=== PATIENT | male | born 1975 | race Caucasian/White ===

== ENCOUNTER 2019-02-16 20:29 | Inpatient (IN) ==
[2019-02-16] MEDS ORDERED: ONDANSETRON INJ 2 MG/ML 2 ML VIAL IV STA (20:45)
[2019-02-16] MEDS ORDERED: KETOROLAC TROMETHAMINE 15 MG/ML VIAL IV STA (20:45)
[2019-02-16] MEDS ORDERED: SODIUM CHLORIDE 0.9% 1000ML 1,000 ML IV ONE (20:45)
[2019-02-16] MEDS ORDERED: MoRPHine SULFATE 4 MG/ML 1 ML CARP\\VIAL IV STA (20:45)
[2019-02-16 21:13] LABS: Hematocrit (blood only) 40.3 % (42-52); Hemoglobin 14.2 g/dL (14.0-18.0); Mean Corpuscular Hemoglobin 31.2 pg (25-34); Mean Corpuscular Hgb Conc 35.2 g/dL (32-36); Mean Corpuscular Volume 88.6 fL (80-100); Mean Platelet Volume 9.7 fL (7.4-10.4); Platelet Count 197 K/uL (130-400); RDW Coefficient of Variation 12.9 % (11.5-14.5); RDW Standard Deviation 41.1 fL (36.4-46.3); Red Blood Count 4.55 M/uL (4.7-6.1); White Blood Count 12.16 K/uL (4.8-10.8)
[2019-02-16 21:18] LABS: Appearance Urine Cloudy (Clear); Bacteria Urine Automated Negative (Negative); Bilirubin Urine Negative (Negative); Blood Urine 2+ (Negative); Color Urine Dark Yellow; Epithelial Cell Urine Auto >30 /lpf (0-5); Glucose Urine UA Negative (Negative); Ketones Urine Trace (Negative); Leukocyte Esterase Urine Negative (Negative); Nitrite Urine Negative (Negative); Protein Urine 2+ (Negative); Specific Gravity Urine 1.031 (1.000-1.030); Urobilinogen Urine Negative (Negative); pH Urine 5.5 (4.5-7.5)
--- NOTE | 2019-02-16 21:22 | XRay Report ---
KUB HISTORY: Follow up study in a patient with left ureteral calculus stone passage left COMPARISON: KUB 02/13/2019 FINDINGS: The bowel gas pattern is non-obstructive. There is no organomegaly. The renal shadows are partially obscured by bowel gas. No definite renal or ureteral calculi identified. There are 2 subadj acent pelvic basin calcifications on the left, one of which may reflect the previously noted left ure teral calculus with distal migration. Pelvic phleboliths redemonstrated. No pneumoperitoneum or pneum atosis. No fracture. IMPRESSION: 3 mm left pelvic basin calcification possibly reflects migrated ureteral calculus. Correlate with uri nalysis. Electronically signed by: Neal Mahan M.D. 02/16/2019 9:19 PM
[2019-02-16] MEDS ORDERED: TAMSULOSIN HCL 0.4 MG CAP PO ONE (21:23)
[2019-02-16 21:28] LABS: BUN Creatinine Ratio 12.8 (10-20); Calcium 9.3 mg/dl (8.5-10.1); Creatinine Clr Calc Pharmacy 109.2 ml/min; Est GFR (African American) 91.4; Est GFR (Non-African American) 78.9; Potassium 3.4 mmol/L (3.5-5.1)
[2019-02-16 21:29] LABS: Calcium Oxalate Crystals Urine Present (None Prsent); RBC Urine Automated 0-4 /hpf (0-4); Renal Epithelial Cells Urine 0-5 /lpf (0-5)
--- NOTE | 2019-02-16 21:46 | Emergency Department Note ---
Entered by Leona Gruber acting as a scribe for History of Present Illness General Chief complaint: Kidney Stone Stated complaint: KIDNEY STONES, SEVERE PAIN Time Seen by Provider: 02/16/19 20:38 History of Present Illness Provider complaint: flank pain Onset (ago): hour(s) 3 Location: abdomen (flank) Pain Consistency: + other (worsening) Maximum Pain Intensity: 8 Relieved By: not by medication Associated symptoms: + denies other symptoms (hematuria) and + other (diagnosed with kidney stones 3 days ago, having flare ups on pain ever since, pain worse on left side, spells of dry heaving, decreased appetite, has not followed up with urology); no fever/chills Treatments prior to arrival: other (3 Tylenol and 1 Oxycodone at 1800 which did not help) The patient is a 44 year old male who presents to the ED with complaints of worsening flank pain that started 3 hours ago. The patient states that was seen in the ED 3 days ago and was diagnosed with kidney stones. The patient states that he has been having flare ups of flank pain ever since he was discharged. The patient states that his pain is worse on the left side. The patient notes that he took 3 Tylenol and 1 Oxycodone at 1800, but neither helped his pain. The patient notes that he has had spells of dry heaving and he has had a decreased appetite. The patient denies hematuria and fever. The patient notes that he has not followed up with urology yet. Home Medications Home Medications Medication Instructions Recorded Confirmed Type oxycodone 5 mg PO Q4H PRN #15 tab 02/13/19 Rx Allergies Allergy/AdvReac Type Severity Reaction Status Date / Time cashew nut Allergy Intermediate GI symptoms Verified 02/13/19 07:22 Past Med/Surg History Medical History Obstruction of left ureteropelvic junction (UPJ) due to stone (Acute) Right distal ureteral calculus (Acute) Dizziness (Acute) High blood pressure (Acute) Kidney stone Hypertension Surgical History No significant past surgical history Social History Preferred Language: Kenyan marital status: current occupational status: employed Feels Safe at Home: Yes Smoking Status: Never smoker Review of Systems See HPI for pertinent positives & negatives. and A total of 10 systems reviewed and were otherwise negative Physical Exam Vital Signs Vital Signs - 24 hr 02/16/19 20:32 02/16/19 21:15 Temperature 37.0 C Temperature Source Oral Sepsis Recent Fever Within 48 Hours No Sepsis New/Unexplained Change in Mental Status No Sepsis Action Taken by Nursing No Action Required Pulse Rate 100 H Respiratory Rate 16 99 H Blood Pressure 158/87 H Blood Pressure [Left Arm] 156/108 H Blood Pressure Mean 110 Blood Pressure Mean [Left Arm] 124 Pulse Oximetry 97 Oxygen Delivery Method Room Air GENERAL: Patient is in no acute distress. HEENT: No acute trauma, normocephalic atraumatic, mucous membranes moist, no nasal congestion, no scleral icterus. NECK: No stridor, no adenopathy, no meningismus, trachea is midline. LUNGS: Clear to auscultation bilaterally, no wheeze, no rhonchi, breath sounds equal. HEART: 2/6 systolic murmur, mildly tachycardic, regular rhythm. ABDOMEN: Soft, nontender, bowel sounds positive, no hernias, no peritonitis. BACK: No flank discomfort with percussion. EXTREMITIES: No cyanosis or edema, full range of motion of all the joints without pain or difficulty, no signs for acute trauma. NEUROLOGIC: Oriented x 3, no acute motor or sensory deficits, no focal weakness. SKIN: No rash, no jaundice, no diaphoresis. Course 2040: Past medical records reviewed. The patient was evaluated in room C7. A complete history and physical exam was performed. 2137: I updated the patient on the test results. He is still having some pain but he states that he is feeling better. 2144: I discussed the patient's case with Dr. Naz Parikh. He will evaluate the patient for further management. Consultations Consultation #1: I discussed the patient's case with Dr. Naz Parikh. He will evaluate the patient for further management. Time: 21:45 Administered Medications Discontinued Medications Sodium Chloride (Nss 1000ml) 1,000 mls @ 999 mls/hr IV .Q1H1M ONE Stop: 02/16/19 21:45 Last Infusion: 02/16/19 21:48 Dose: 0 mls/hr Documented by: [id number] Admin: 02/16/19 21:02 Dose: 999 mls/hr Documented by: [id number] Ketorolac Tromethamine (Toradol) 15 mg IV ONE STA Stop: 02/16/19 20:46 Last Admin: 02/16/19 21:01 Dose: 15 mg Documented by: [id number] Morphine Sulfate (Morphine Sulfate) 4 mg IV NOW STA Stop: 02/16/19 20:46 Last Admin: 02/16/19 21:02 Dose: 4 mg Documented by: [id number] Ondansetron HCl (Zofran) 4 mg IV NOW STA Stop: 02/16/19 20:46 Last Admin: 02/16/19 21:02 Dose: 4 mg Documented by: [id number] Tamsulosin HCl (Flomax) 0.4 mg PO NOW ONE Stop: 02/16/19 21:24 Last Admin: 02/16/19 21:33 Dose: 0.4 mg Documented by: [id number] Medical Decision Making Differential Diagnosis Differentials include failed outpatient treatment, hydronephrosis, pyelonephritis, UTI, renal colic, renal failure, hematuria, dehydration. Medical Records Attestation: I reviewed the patient's medical records. Patient was seen here on 02/13/2019 and diagnosed with kidney stones. The patient had a 3 mm left UPJ obstructing stone and non-obstructing 2.5 mm distal right calculus. Patient had WBC of 11 and normal creatinine. Patient was discharged on Oxycodone. Home Medications Current Medication List: was personally reviewed by me Laboratory Data Attestation: I reviewed the patient's lab results. Result diagrams: 02/16/19 21:03 02/16/19 21:03 Lab Results 02/16/19 02/16/19 02/16/19 Range/Units 20:56 21:03 21:03 WBC 12.16 H (4.8-10.8) K/uL RBC 4.55 L (4.7-6.1) M/uL Hgb 14.2 (14.0-18.0) g/dL Hct 40.3 L (42-52) % MCV 88.6 (80-100) fL MCH 31.2 (25-34) pg MCHC 35.2 (32-36) g/dL RDW Std Deviation 41.1 (36.4-46.3) fL RDW Coeff of Katerina 12.9 (11.5-14.5) % Plt Count 197 (130-400) K/uL MPV 9.7 (7.4-10.4) fL Sodium 138 (136-145) mmol/L Potassium 3.4 L (3.5-5.1) mmol/L Chloride 107 (98-107) mmol/L Carbon Dioxide 24 (21-32) mmol/L Anion Gap 7.0 (3-11) BUN 15 (7-18) mg/dl Creatinine 1.14 (0.6-1.4) mg/dl Est Cr Clr Drug Dosing 109.2 ml/min Est GFR ( Amer) 91.4 Est GFR (Non-Af Amer) 78.9 BUN/Creatinine Ratio 12.8 (10-20) Glucose 124 H (70-99) mg/dl Calcium 9.3 (8.5-10.1) mg/dl Urine Color Dark Yellow Urine Appearance Cloudy A (Clear) Urine pH 5.5 (4.5-7.5) Ur Specific [place] 1.031 H (1.000-1.030) Urine Protein 2+ H (Negative) Urine Glucose (UA) Negative (Negative) Urine Ketones Trace H (Negative) Urine Blood 2+ H (Negative) Urine Nitrite Negative (Negative) Urine Bilirubin Negative (Negative) Urine Urobilinogen Negative (Negative) Ur Leukocyte Esterase Negative (Negative) Urine WBC (Auto) 1-5 (0-5) /hpf Urine RBC (Auto) 0-4 (0-4) /hpf U Hyaline Cast (Auto) 10-30 H (0-5) /lpf U Epithel Cells (Auto) >30 H (0-5) /lpf Urine Bacteria (Auto) Negative (Negative) Ur Renal Epithelial Cell 0-5 (0-5) /lpf Urine Crystals Calcium Oxalate A (None Prsent) Calcium Oxalate Crystal Present A (None Prsent) Urine Yeast Not Reportable Imaging Data Radiologist's Impression: Radiology results as stated below per my review and the radiologist's interpretation: KUB HISTORY: Follow up study in a patient with left ureteral calculus stone passage left COMPARISON: KUB 02/13/2019 FINDINGS: The bowel gas pattern is non-obstructive. There is no organomegaly. The renal shadows are partially obscured by bowel gas. No definite renal or ureteral calculi identified. There are 2 subadjacent pelvic basin calcifications on the left, one of which may reflect the previously noted left ureteral calculus with distal migration. Pelvic phleboliths redemonstrated. No pneumoperitoneum or pneumatosis. No fracture. IMPRESSION: 3 mm left pelvic basin calcification possibly reflects migrated ureteral calculus. Correlate with urinalysis. Electronically signed by: Neal Mahan M.D. 02/16/2019 9:19 PM Blood Pressure Blood Pressure Findings: Elevated blood pressure Blood Pressure Disposition: further management by hospitalist MDM Narrative There is a mild leukocytosis at 12,000, this is consistent with his pain, possibly consistent with infection. There was no worrisome anemia. No significant electrolyte abnormality or kidney failure. Urinalysis does so calci um oxalate crystals as well as some hematuria. There was no evidence of for UTI. KUB demonstrates a potential left ureteral stone which has migrated towards the bladder when compared to previous films. On exam, the patient was not febrile or toxic. The patient has bilateral ureteral stones, the one on the left is giving him pain and causing obstruction. He presents today with increased pain despite oxycodone and Tylenol taken at home. He has been dry heaving. The patient has failed outpatient treatment and requires a hospital stay for fluids and pain control. He may require urologic intervention if not passing the stone naturally. Patient was given IV saline, IV Zofran, IV morphine and IV Toradol. He was given a dose of oral Flomax. I did speak to the patient about his findings, I spoke with case management. The on-call hospitalist was consulted. Impression & Plan Renal colic, Hydronephrosis, Failure of outpatient treatment, Left flank pain Discharge Plan Visit Data Chief Complaint: Kidney Stone Stated Complaint: KIDNEY STONES, SEVERE PAIN ED Provider: Shadi Marcos Discharge Problem: Renal colic, Hydronephrosis, Failure of outpatient treatment, Left flank pain Patient Disposition: Being Evaluated by Hospitalist Forms Stand Alone Forms: My [employer] Prescriptions Prescriptions: No Action oxycodone 5 mg tablet 5 mg PO Q4H PRN (Reason: pain) Qty: 15 RF: 0 Referrals Referrals: Raul Perez MD [Primary Care Provider] - Discharge Problem: Hydronephrosis Qualifiers: Hydronephrosis type: unspecified Qualified Code(s): N13.30 - Unspecified hydronephrosis The scribe's documentation has been prepared under my direction and personally reviewed by me in its entirety. I confirm that the note above accurately reflects all work, treatment, procedures, and medical decision making performed by me.
[2019-02-17] MEDS ORDERED: ONDANSETRON INJ 2 MG/ML 2 ML VIAL IV PRN (00:04)
[2019-02-17] MEDS ORDERED: ACETAMINOPHEN 325 MG TAB PO PRN (00:04)
[2019-02-17] MEDS: SODIUM CHLORIDE 0.9% 1000ML 1,000 ML IV SCH ×4 (00:22→21:17)
--- NOTE | 2019-02-17 01:21 | History and Physical Report ---
DATE OF ADMISSION: 02/16/2019 CHIEF COMPLAINT: Kidney stone. HISTORY OF PRESENT ILLNESS: A 44-year-old male with past medical history of hypertension, currently not taking any medication because he could not tolerate them, intially he was place on lisinopril and later on Norvasc but he says he is not taking them currently, came to the ER on February 13 with severe pain in the left side and at that time a CAT scan was done which showed bilateral kidney stones, 3 mm left UPJ calculus with secondary obstructive changes and nonobstructing 2.5 mm distal right UVJ calculus. The patient was sent home and was advised to increase the fluid intake and take Tylenol, ibuprofen and strain the urine and follow up with family doctor and urologist.But the patient says the pain seemed to get better, but again it came back.Today afternoon had severe pain in the left flank, rated 8/10 in severity, which brought him to the ER. Currently, with the pain medication, pain is improved to 3/10 in severity. Denies any hematuria or burning micturition. No fever, chills. No nausea, no vomiting. No chest pain or shortness of breath. No cough, no headache, no dizziness, no blurred vision, no earache, no runny nose, no sore throat, no difficulty swallowing. No rash, no swelling in the legs. Resting comfortably and hemodynamically stable. ALLERGIES: CASHEW NUT. PAST MEDICAL HISTORY: As mentioned above. PAST SURGICAL HISTORY: No surgical history on file. MEDICATIONS: None currently. FAMILY HISTORY: Significant for father who has hypertension. SOCIAL HISTORY: . No smoking, no alcohol, no drug use. REVIEW OF SYMPTOMS: As per HPI. Rest of review of systems is negative. PHYSICAL EXAMINATION: GENERAL: The patient is obese, not in acute distress. VITAL SIGNS: Temperature 37, pulse 94, respiratory rate 16, blood pressure 166/101, oxygen 95% room air. HEENT: No pallor, no icterus. Pupils equal, round, and reactive to light. NECK: No JVD, no neck masses, no carotid bruits. CARDIOVASCULAR: S1, S2 heard, regular rate and rhythm, no murmur, no gallop. RESPIRATORY SYSTEM: Normal AP diameter. No accessory muscle use. No wheezing, no crackles. ABDOMEN: Soft, bowel sounds present, nontender.NO CVA tenderness, No distention. CENTRAL NERVOUS SYSTEM: Cranial nerves II-XII grossly intact. Nonfocal. EXTREMITIES: No edema, no erythema. LABORATORY DATA: WBC 12.1, hemoglobin 14.2, hematocrit 40.3, platelets 197. Sodium 138, potassium 3.4, chloride 107, bicarbonate 24, BUN 15, creatinine 1.14, serum glucose 124, calcium 9.3. Urinalysis positive for blood, urine crystals, calcium oxalate crystals present. KUB x-ray shows 3 mm left pelvic basin calcification, possibly reflects migrated ureteral calculus. ASSESSMENT AND PLAN: This is a 44-year-old male who presents with renal colic. 1. Renal colic. The patient was in the ER on February 13 with left flank pain. CAT scan showed left 3 mm UPJ junction obstructing stone and 2.5 mm right UPJ nonobstructing stone. He was discharged home with conservative management, advised to follow with urology. The pain came back again today. KUB shows possibly left upj stone migrated to left pelvic basin, so we will keep him in the hospital, give him IV fluids, pain control, n.p.o. after midnight and consult urology in a.m. for further recommendation. Follow repeat KUB in the a.m. 2. History of hypertension, currently not taking any medication. Blood pressure is somewhat elevated . Will monitor. We will discuss with the patient about starting on antihypertensives if blood pressure continues to be l elevated. Needs close followup with PCP. 3. Deep venous thrombosis prophylaxis, sequential compression devices for now. 4. Disposition: Monitor in the medical floor. Level 1 full code. MTDD
[2019-02-17] MEDS: MoRPHine SULFATE 4 MG/ML 1 ML CARP\\VIAL IV PRN ×4 (02:30→20:27)
[2019-02-17 06:16] LABS: Basophils # (auto) 0.02 K/uL (0-0.2); Basophils % (auto) 0.2 %; Eosinophils # (auto) 0.24 K/uL (0-0.5); Hematocrit (blood only) 39.7 % (42-52); Hemoglobin 13.4 g/dL (14.0-18.0); Immature Granulocytes # (auto) 0.02 K/uL (0.00-0.02); Immature Granulocytes % (auto) 0.2 %; Lymphocytes # (auto) 1.51 K/uL (1.2-3.4); Lymphocytes % (auto) 12.7 %; Mean Corpuscular Hemoglobin 30.7 pg (25-34); Mean Corpuscular Hgb Conc 33.8 g/dL (32-36); Mean Corpuscular Volume 91.1 fL (80-100); Mean Platelet Volume 10.1 fL (7.4-10.4); Monocytes # (auto) 1.39 K/uL (0.11-0.59); Monocytes % (auto) 11.7 %; Neutrophils # (auto) 8.73 K/uL (1.4-6.5); Neutrophils % (auto) 73.2 %; Platelet Count 198 K/uL (130-400); RDW Coefficient of Variation 13.2 % (11.5-14.5); RDW Standard Deviation 43.8 fL (36.4-46.3); Red Blood Count 4.36 M/uL (4.7-6.1); White Blood Count 11.91 K/uL (4.8-10.8)
[2019-02-17 06:55] LABS: BUN Creatinine Ratio 10.9 (10-20); Calcium 8.7 mg/dl (8.5-10.1); Creatinine Clr Calc Pharmacy 96.2 ml/min; Est GFR (African American) 78.7; Est GFR (Non-African American) 67.9; Magnesium 1.9 mg/dl (1.8-2.4); Potassium 3.8 mmol/L (3.5-5.1)
--- NOTE | 2019-02-17 09:07 | XRay Report ---
KUB CLINICAL HISTORY: Nephrolithiasis. FINDINGS: 2 AP supine abdominal radiographs are compared to study dated 02/16/2019 and correlated with abdominal CT dated 02/13/2019. There is a nonobstructed abdominal bowel gas pattern. Moderate fecal retention is noted in the right colon. A 3 mm calcification is again seen in the left hemipelvis over lying a phlebolith. This likely represents a distal ureteral stone. No additional calcifications are seen projecting over either kidney. The bony structures appear intact. IMPRESSION: A 3 mm calcification in the left pelvis is unchanged from yesterday and likely represents a small distal ureteral stone. Electronically signed by: Shadi Doherty M.D. 02/17/2019 9:06 AM
[2019-02-17] MEDS: TAMSULOSIN HCL 0.4 MG CAP PO SCH (09:18)
--- NOTE | 2019-02-17 11:10 | Urology Consultation ---
Date of Consultation February 17, 2019 Assessment & Plan (1) Hydronephrosis: Patient's pain is better controlled. Appears that right distal stone has passed. Also appears that left stone has moved down to distal ureter. No major changes no new issues no severe nausea or vomiting. Pain is better controlled. No fevers or chills. Discussed options including stent. Discussed observation. Discussed stone treatment. Patient would like to continue with symptom control and hydration. Will continue to follow closely. If any fevers or chills may need to go sooner. Risk benefits were discussed at length for each of these. We will continue to follow. (2) Renal colic: (3) Left flank pain: History of Present Illness Attending Physician: Marina Campos MD History of Present Illness Patient with severe abdominal pain rating to groin in waves. Has improved with medication and hydration. Was found to have bilateral stones on February 13. Was sent home with hydration and pain control plans. Both were small stones with a right distal stone and a left proximal stone. Had re-presented with discomfort and pain. Right stone appears to have passed on KUB. But now left stone appears to be down at distal ureter. Patient's pain better controlled. No major vomiting or other issues. Is resting comfortably. Is undergoing hydration. Is tolerating pain control. Allergies Allergy/AdvReac Type Severity Reaction Status Date / Time cashew nut Allergy Intermediate GI symptoms Verified 02/16/19 22:03 Home Medications Home Medications Medication Instructions Recorded Confirmed Type No Known Home Medications 02/16/19 02/16/19 History Patient History Medical History Obstruction of left ureteropelvic junction (UPJ) due to stone (Acute) Right distal ureteral calculus (Acute) Dizziness (Acute) High blood pressure (Acute) Kidney stone Hypertension Surgical History No significant past surgical history Social History Preferred Language: Portuguese Communication Ability: Effective Dairy Technician Required: No Beliefs That Will Affect Care: None marital status: Current Living Situation: Spouse current occupational status: employed Feels Safe at Home: Yes Safety Concerns: Feels Safe At This Time Smoking Status: Never smoker Hx Alcohol Use: No Hx Substance Use: No Review of Systems Review of Systems: All systems reviewed & are unremarkable except as noted in HPI & below Physical Exam Physical Exam: General: Alert and oriented x 3 in no acute distress. Patient is well nourished and well kept. HEENT: Normocephalic Atraumatic. Inspection normal. Cranial Nerves 2-12 Grossly intact. Nares are clear. Neck is supple. Normal inspection of face. Normal inspection of neck. Neurologic: No deficits on inspection. Baseline for motor function and sensory. Psychologic: Normal affect. Respiratory: Nonlabored. No use of accessory muscles. No tachypnea or dyspnea. Cardiovascular: No tachycardia Skin: [place] and Dry. No rashes or visible lesions. Extremities: Moving without issues. No motor deficits on inspection Lymphatics: No edema Abdomen: Soft Non-distended. No acites. No rebound or guarding. Results & Data Vital Signs (Past 12 Hours) Vital Signs Temp Pulse Resp BP Pulse Ox 02/17/19 07:10 36.5 C 96 H 19 136/84 94 02/17/19 00:07 37.3 C 99 H 16 154/90 H 95 PG Care Time/CCT Total # of Minutes Spent Total Time Spent with Patient: Total time spent is greater than 50% in coordination of care (as documented) at patient's floor/unit and/or counseling patient: (1) Hydronephrosis Hydronephrosis type: unspecified Qualified Code(s): N13.30 - Unspecified hydronephrosis
--- NOTE | 2019-02-17 15:45 | Hospitalist Progress Note ---
Date of Service February 17, 2019 Assessment & Plan (1) Left flank pain: (2) Obstruction of left ureteropelvic junction (UPJ) due to stone: From review of scans, seems right calculus may have passed Continue urine straining Continue IVF and pain management NPO past midnight Urologist on board (3) High blood pressure: Blood pressure has been elevated from recordings since 02/13/19 This may be related to pain from kidney stone Review of previous recordings showed last recorded BP in 07/07/2016 was within normal. However, patient has had ranges of BP from normal to elevated before then. Will manage pain and monitor for now If still elevated by AM, will discuss with patient about starting antihypertensives Subjective Patient seen and examined earlier today Reports left flank pain currently well controlled. Usually comes in waves, intermittent. Denied any fevers, chills, nausea, vomiting. Has not moved bowel, passes flatus Denied any dysuria, frequency, urgency,hematuria Review of Systems Review of Systems: All systems reviewed and unremarkable except for mentioned above. Physical Exam Constitutional: well developed and well nourished; no acute distress Eyes: PERRL, conjunctivae normal, anicteric sclerae ENMT: external ear and nose normal, oropharynx normal Neck: trachea midline, no thyromegaly Respiratory: normal respiratory effort, lungs clear to auscultation Cardiovascular: RRR, no murmur, no edema Heart Sounds: normal S1 and normal S2 Extremities: no pedal edema Gastrointestinal (Abdomen): normal bowel sounds, soft, nontender, no hepatosplenomegaly Musculoskeletal: no cyanosis or clubbing, extremities motor strength 5/5 Neurologic: PERRL, EOMI, accommodation nl, no face palsy, no dysarthria Psychiatric: A+Ox3, euthymic affect Genitourinary: no CVA tenderness Results & Data Vital Signs (Past 12 Hours) Vital Signs Temp Pulse Resp BP Pulse Ox 02/17/19 15:20 38.0 C H 100 H 19 151/84 H 95 02/17/19 07:10 36.5 C 96 H 19 136/84 94 Laboratory Results Short CBC 02/16/19 02/17/19 Range/Units 21:03 05:04 WBC 12.16 H 11.91 H (4.8-10.8) K/uL Hgb 14.2 13.4 L (14.0-18.0) g/dL Hct 40.3 L 39.7 L (42-52) % Plt Count 197 198 (130-400) K/uL BMP 02/16/19 02/17/19 21:03 05:04 Sodium 138 140 Potassium 3.4 L 3.8 Chloride 107 109 H Carbon Dioxide 24 25 BUN 15 14 Creatinine 1.14 1.29 Glucose 124 H 96 Calcium 9.3 8.7 Urine 02/16/19 Range/Units 20:56 Urine Color Dark Yellow Urine Appearance Cloudy A (Clear) Urine pH 5.5 (4.5-7.5) Ur Specific [place] 1.031 H (1.000-1.030) Urine Protein 2+ H (Negative) Urine Glucose (UA) Negative (Negative) Diagnostic Findings CT abd/pevis from 02/13/19 1. 3 mm proximal left UPJ calculus with secondary obstructive changes 2. Nonobstructing 2.5 mm distal right UVJ calculus 3. No evidence of bowel obstruction. No evidence of free air KUB from yesterday 3 mm left pelvic basin calcification possibly reflects migrated ureteral calculus. KUB today A 3 mm calcification in the left pelvis is unchanged from yesterday and likely represents a small distal ureteral stone.
[2019-02-18] MEDS: MoRPHine SULFATE 4 MG/ML 1 ML CARP\\VIAL IV PRN ×2 (02:22→08:57)
[2019-02-18] MEDS: SODIUM CHLORIDE 0.9% 1000ML 1,000 ML IV SCH (04:59)
--- NOTE | 2019-02-18 07:50 | Urology Progress Note ---
Date of Service February 18, 2019 Assessment & Plan (1) Obstruction of left ureteropelvic junction (UPJ) due to stone: 44yo M with persistent 3mm left distal ureteral stone, spontaneous passage of right ureteral stone. IV pain control x2 last evening. KUB this AM - no change in stone position, good visibility. Last dose of Morphine at 2am, pt appears comfortable today. Discussed options moving forward with pt in detail. Pt currently stable, no indication for acute stone intervention at this time. Plan for discharge home with flomax, pain control. ER criteria reviewed. Max medical therapy also reviewed. Will followup with pt as outpatient on Monday at 2PM at [address] [place] [address] to arrange for outpatient ESWL this Monday. Added to discharge instructions. Thank you for allowing us to participate in the acute care of Mr. Gupta. Please reconsult us with additional questions, concerns or changes in patient status. Subjective 44yo M with persistent 3mm distal left ureteral stone Pt required IV pain control x2 yesterday. No dysuria, hematuria. No major voiding issues. Tmax 38.0C on 02/17; trending down since. VSS, nontoxic appearing today. Cr stable. UC&S negative. Review of Systems Review of Systems: All systems reviewed & are unremarkable except as noted in HPI & below Physical Exam 2 Constitutional: no acute distress and not ill appearing Eyes: no nystagmus ENMT: Ears: no hearing impairment Neck: trachea midline Respiratory: no respiratory distress and no cough Cardiovascular: Vessels: no JVD Chest (Breasts): Chest: normal inspection of chest Gastrointestinal (Abdomen): Inspection/Auscultation: abdomen not distended and no abdominal edema Percussion/Palpation: abdomen soft; abdomen nontender Musculoskeletal: Head/Neck/Chest: normocephalic and head atraumatic Skin: no rashes, warm and dry Neurologic: awake; not confused and not obtunded Psychiatric: Orientation: alert and oriented x 3 Eye Contact: good eye contact Affect: no depressed affect Genitourinary: bladder normal to inspection; no CVA tenderness Lymphatic: no lymphadenopathy and no lymphedema Results & Data Vital Signs (Past 12 Hours) Vital Signs Temp Pulse Resp BP Pulse Ox 02/17/19 22:50 37.5 C 90 16 131/86 96 PG Care Time/CCT Total # of Minutes Spent Total Time Spent with Patient: Total time spent is greater than 50% in co ordination of care (as documented) at patient's floor/unit and/or counseling patient:
--- NOTE | 2019-02-18 08:41 | XRay Report ---
KUB HISTORY: Follow up study in a patient with left ureteral calculus left distal stone COMPARISON: KUB 02/17/2019, 02/16/2019, CT 02/13/2019 FINDINGS: The bowel gas pattern is non-obstructive. There is no organomegaly. 3 mm calcification of the left hemipelvis suggestive of ureteral calculus redemonstrated adjacent to a probable phlebolith. Renal shadows are partially obscured by bowel gas. No definite nephrolithiasis identified. No pneumo peritoneum or pneumatosis. No fracture. IMPRESSION: 3 mm left pelvic basin calcification redemonstrated suggestive of a probable distal ureteral calculus Electronically signed by: Neal Mahan M.D. 02/18/2019 8:40 AM
[2019-02-18] MEDS: TAMSULOSIN HCL 0.4 MG CAP PO SCH (08:58)
[2019-02-18] MEDS ORDERED: AMLODIPINE BESYLATE 5 MG TAB PO STA (11:15)
--- NOTE | 2019-02-18 11:43 | Discharge Summary ---
Date of Service February 18, 2019 Admission HPI Per Admitting Provider 44-year-old male with past medical history of hypertension, currently not taking any medication because he could not tolerate them, intially he was place on lisinopril and later on Norvasc but he says he is not taking them currently, came to the ER on February 13 with severe pain in the left side and at that time a CAT scan was done which showed bilateral kidney stones, 3 mm left UPJ calculus with secondary obstructive changes and nonobstructing 2.5 mm distal right UVJ calculus. The patient was sent home and was advised to increase the fluid intake and take Tylenol, ibuprofen and strain the urine and follow up with family doctor and urologist.But the patient says the pain seemed to get better, but again it came back.Today afternoon had severe pain in the left flank, rated 8/10 in severity, which brought him to the ER. Currently, with the pain medication, pain is improved to 3/10 in severity. Denies any hematuria or burning micturition. No fever, chills. No nausea, no vomiting. No chest pain or shortness of breath. No cough, no headache, no dizziness, no blurred vision, no earache, no runny nose, no sore throat, no difficulty swallowing. No rash, no swelling in the legs. Resting comfortably and hemodynamically stable. Admission Exam Per Admitting Provider GENERAL: The patient is obese, not in acute distress. VITAL SIGNS: Temperature 37, pulse 94, respiratory rate 16, blood pressure 166/101, oxygen 95% room air. HEENT: No pallor, no icterus. Pupils equal, round, and reactive to light. NECK: No JVD, no neck masses, no carotid bruits. CARDIOVASCULAR: S1, S2 heard, regular rate and rhythm, no murmur, no gallop. RESPIRATORY SYSTEM: Normal AP diameter. No accessory muscle use. No wheezing, no crackles. ABDOMEN: Soft, bowel sounds present, nontender.NO CVA tenderness, No distention. CENTRAL NERVOUS SYSTEM: Cranial nerves II-XII grossly intact. Nonfocal. EXTREMITIES: No edema, no erythema. Principal Diagnosis Left flank pain Left Kidney stone Hypertension Discharge Exam Constitutional well developed and well nourished; no acute distress Eyes PERRL, conjunctivae normal, anicteric sclerae ENMT external ear and nose normal, oropharynx normal Neck trachea midline, no thyromegaly Respiratory normal respiratory effort, lungs clear to auscultation Cardiovascular RRR, no murmur, no edema Heart Sounds: normal S1 and normal S2 Gastrointestinal (Abdomen) normal bowel sounds, soft, nontender, no hepatosplenomegaly Musculoskeletal no cyanosis or clubbing, extremities motor strength 5/5 Neurologic PERRL, EOMI, accommodation nl, no face palsy, no dysarthria Psychiatric A+Ox3, euthymic affect Genitourinary no CVA tenderness Discharge Data Allergies Allergy/AdvReac Type Severity Reaction Status Date / Time cashew nut Allergy Intermediate GI symptoms Verified 02/16/19 22:03 Consultations 02/16/19 21:46 ED Decision to Admit Stat 02/17/19 08:00 Consult Urology Routine Hospital Course (1) Left flank pain: (2) Obstruction of left ureteropelvic junction (UPJ) due to stone: From review of scans, seems right calculus may have passed Patient was seen and comanaged with the urologist Pain was controlled Continue urine straining at home Discharge on . Will follow up with urology outpatient for possible ESWL on Monday Needs to see urology outpatient on monday at 2pm for eval prior to possible ESWL (3) Hypertension: BP was elevated through hospital stay He reported he was on medication in the past but stopped taking them Will start and discharge patient on amlodipine 5mg daily. Discussed lifestyle modification Will follow up with PCP for continued outpatient management Total Time Total Time Spent Total Time Spent (In Minutes): 30 Total Time Includes: Examination of the Patient, Discharge Planning, Medication Reconciliation and Communication With Other Providers Discharge Plan Discharge Items Patient Disposition: Home - Self-Care Reason For Visit: KIDNEY STONE Discharge Diagnosis: Left Kidney stone Hypertension Condition on Discharge: Good Activity: Resume your previous activity Non-emergency contact: Primary Care Provider and Urologist Call non-emergency contact if: you have any medication questions and your symptoms worsen Follow-up/Referrals: Theron Kent DO [Physician] - Raul Perez MD [Primary Care Provider] - Diet: Heart Healthy Addtl Attending Provider Instructions: Mr Gupta. You came to the hospital for worsening left flank pain. You had been seen in ER for the pain and CT scan showed both right and left kidn ey stones. Due to worsening pain, you were reevaluated. Xrays showed the right stone may have passed but left stone was still present. You were admitted and managed with pain medication and iv fluids. You were seen by Urologist You are being discharged on flomax. You were also noted to have hypertension for which you had been on medication in the past. Please take amlodipine 5mg daily for blood pressure. We also discussed certain lifestyle modification which may help with your blood pressure control. Please ensure you follow up with Urologist outpatient on Monday at 2PM where you will be evaluated for possible ESWL for the kidney stone on Monday. It was a pleasure taking care of you Pending Studies at Discharge: No Stand-Alone Forms: My [facility], Smoking Cessation Medications and DC Order Prescriptions: New acetaminophen [Mapap (acetaminophen)] 325 mg Tablet 650 mg PO Q4H PRN (Reason: pain) Qty: 100 RF: 0 tamsulosin 0.4 mg Capsule 0.4 mg PO QAM 30 Days Qty: 30 RF: 0 amlodipine 5 mg tablet 5 mg PO DAILY 30 Days Qty: 30 RF: 0 No Action No Known Home Medications RF: 0 Discharge Orders: Discharge Order (Routine); Ordered 02/18/19 Ordered By: Marina Campos Admission Data Admit Date/Time: 02/16/19 23:17 Attending Provider: Marina Campos I. Admit Provider: Pedro Shankar Primary Care Provider: Raul Perez Other Providers: Pedro Shankar ; Theron Kent
== END 2019-02-18 12:14 | disposition home or self-care (01) | DRG 694 ==
LOC: ED 20:29 → 3W 23:17